=== PATIENT | male | born 1985 | race Caucasian/White ===

== ENCOUNTER 2016-08-29 12:02 | Emergency (ER) | payer BC, OTHER ==
[2016-08-29] MEDS ORDERED: TEST200V3 IM (12:32)
[2016-08-29] MEDS ORDERED: OMEP20CA9 PO (12:32)
[2016-08-29] MEDS ORDERED: CELE100C PO (12:32)
[2016-08-29] MEDS ORDERED: PHEN37.53 PO (12:33)
[2016-08-29] MEDS ORDERED: IV NORMAL SALINE 1,000ML 1,000 ML IV ONE (13:15)
[2016-08-29 13:25] LABS: BASO # 0.1 x10^3/uL (0.0-0.2); BASO % 1 % (0-3); EOS # 0.3 x10^3/uL (0.0-0.7); EOS % 2 % (0-3); HEMATOCRIT 43.4 % (39.0-53.0); LYMPH # 2.5 x10^3/uL (1.0-4.8); LYMPH % 24 % (24-48); MEAN CORPUSCULAR HEMOGLOBIN 32 pg (25-35); MEAN CORPUSCULAR HGB CONC 35 g/dL (31-37); MEAN CORPUSCULAR VOLUME 91 fL (79-100); MONO # 0.9 x10^3/uL (0.0-1.1); MONO % 8 % (0-9); NEUT % 65 % (31-73); PLATELET COUNT 222 x10^3/uL (140-400); RED BLOOD COUNT 4.75 x10^6/uL (4.30-5.70); RED CELL DISTRIBUTION WIDTH 13.3 % (11.5-14.5); WHITE BLOOD COUNT 10.8 x10^3/uL (4.0-11.0)
[2016-08-29 13:44] LABS: CALCIUM 8.5 mg/dL (8.5-10.1); CREATININE 0.9 mg/dL (0.7-1.3); GFR 97.8; POTASSIUM 3.6 mmol/L (3.5-5.1)
--- NOTE | 2016-08-29 14:38 | EKG ---
[address] [address] Test Date: 2016-08-29 Test Time: 13:05:33 Pat Name: JOYCELYN SHANKAR Department: Room: Gender: M Ditcher: : 1985 Requested By: TRINITY CARRERA Order Number: [id number] Reading MD: Measurements Intervals [place] Rate: 76 P: 29 CA: 144 QRS: -38 QRSD: 96 T: 32 QT: 386 QTc: 439 Interpretive Statements SINUS RHYTHM LEFT ATRIAL ABNORMALITY ABNORMAL LEFT AXIS DEVIATION INCOMPLETE RIGHT BUNDLE BRANCH BLOCK QRS(T) CONTOUR ABNORMALITY CONSIDER ANTEROLATERAL MYOCARDIAL DAMAGE RI6.01 Unconfirmed report No previous ECG available for comparison
--- NOTE | 2016-08-29 14:40 | RAD ---
Nathan Wales Chest x-ray 1303 INDICATION: Weakness COMPARISON: 01/26/2013 FINDINGS: Single view of chest obtained. No focal airspace consolidation. Mediastinal contour is unremarkable. No gross osseous destructive lesion. IMPRESSION: No focal airspace consolidation or edema. MTDD
--- NOTE | 2016-08-29 14:41 | RAD ---
Nathan Subhash 1350 CT head INDICATION: Headache and weakness COMPARISON: None. TECHNIQUE: Axial CT images obtained through the head without intravenous contrast. FINDINGS: Tiny/subtle focus of high attenuation at the frontal interhemispheric region No midline shift. Basal cisterns patents. Ventricles and sulci are unremarkable. No acute osseous abnormality. Orbits and paranasal sinuses partially seen and unremarkable. IMPRESSION: 1. Tiny region of high attenuation at the interhemispheric region frontally and at right frontal region. This could be artifactual in nature since this is a very subtle finding but may be helpful to obtain a follow-up CT in several hours or MRI to further evaluate and ensure that this is not from a tiny subarachnoid hemorrhage. Report called to the ER at 1:46 PM on date of exam. PQRS Compliance Statement: One or more of the following individualized dose reduction techniques were utilized for this examination: 1. Automated exposure control 2. Adjustment of the mA and/or kV according to patient size 3. Use of iterative reconstruction technique MTDD
[2016-08-29 16:24] VITALS: BP 138/70
--- NOTE | 2016-08-29 17:35 | ED.ADGEN ---
Past History Past Medical History: No Pertinent History Past Surgical History: Cholecystectomy Smoking: Non-smoker Alcohol Use: None Drug Use: None Adult General HPI HPI Patient is a 31-year-old man, with no significant past no history, who presents emergency department from his primary care provider's office with a complaint of frontal headache, lightheadedness, dizziness, and possible illness secondary to heat exposure. 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 He states he also felt nauseous, with abdominal cramping. He denies any focal weakness, numbness or tingling, any syncope, any vision changes. Denies any injuries, states he is experiencing a headache across the front and top of his head which he describes as throbbing in nature, no neck pain. He denies similar symptoms previously. He states that he was outside in the heat yesterday as well, states he has been trying to stay hydrated. Denies any urinary complaints, or decrease in urination. Denies any diarrhea. Patient was seen at his primary care provider, Dr. Ace, sent to the emergency department for additional evaluation. Review of Systems Review of Systems Constitutional: Denies fever or chills [] generalized malaise, dizziness And lightheadedness. Eyes: Denies change in visual acuity, redness, or eye pain [] HENT: Denies nasal congestion or sore throat [] Respiratory: Denies cough or shortness of breath [] Cardiovascular: No additional information not addressed in HPI [] GI: Denies bloody stools or diarrhea [] abdominal cramping, nausea. No vomiting. : Denies dysuria or hematuria [] Musculoskeletal: Denies back pain or joint pain [] Integument: Denies rash or skin lesions [] Neurologic: Denies focal weakness or sensory changes, complaining of headache. Endocrine: Denies polyuria or polydipsia [] Current Medications Current Medications Current Medications Medications (Trade) Dose Ordered Sig/Marie Start Time Stop Time Status Last Admin Dose Admin Sodium Chloride 1,000 ml @ 1,000 mls/hr 1X ONCE 08/29/16 13:15 08/29/16 14:14 DC 08/29/16 13:15 1,000 MLS/HR Allergies Allergies Allergies Coded Allergies Type Severity Reaction Last Updated Verified Tetanus Vaccines & Toxoid Allergy Intermediate injection site swelling 04/12/15 Yes Physical Exam Physical Exam Constitutional: Well developed, well nourished, appears uncomfortable, eyes are closed, he is mildly diaphoretic, non-toxic appearance. [] HENT: Normocephalic, atraumatic, bilateral external ears normal, oropharynx moist, no oral exudates, nose normal. [] Eyes: PERRLA, EOMI, conjunctiva normal, no discharge. [] Neck: Normal range of motion, no tenderness, supple, no stridor. No nuchal rigidity. Cardiovascular:Heart rate regular rhythm, no murmur, S1, S2, no rubs or gallops. [] Lungs & Thorax: Bilateral breath sounds clear to auscultation , no wheezing, rhonchi, rales. No chest or crepitus or tenderness. [] Abdomen: Bowel sounds normal, soft, no tenderness, no masses, no rebound, rigidity, no guarding, no pulsatile masses. [] Skin: Warm, dry, no erythema, no rash. [] Back: No tenderness, no CVA tenderness. [] Extremities: No tenderness, no cyanosis, no clubbing, ROM intact, no edema. Negative Homans sign. [] Neurologic: Alert and oriented X 3, normal motor function, normal sensory function, no focal deficits noted. [] Psychologic: Affect normal, judgement normal, mood normal. [] Current Patient Data Vital Signs Vital Signs Date Time Temp Pulse Resp B/P (MAP) Pulse Ox O2 Delivery O2 Flow Rate FiO2 08/29/16 16:24 68 18 138/70 (92) 97 Room Air 08/29/16 12:15 97.6 Lab Results Laboratory Tests Test 08/29/16 13:12 White Blood Count 10.8 x10^3/uL (4.0-11.0) Red Blood Count 4.75 x10^6/uL (4.30-5.70) Hemoglobin 15.0 g/dL (13.0-17.5) Hematocrit 43.4 % (39.0-53.0) Mean Corpuscular Volume 91 fL (79-100) Mean Corpuscular Hemoglobin 32 pg (25-35) Mean Corpuscular Hemoglobin Concent 35 g/dL (31-37) Red Cell Distribution Width 13.3 % (11.5-14.5) Platelet Count 222 x10^3/uL (140-400) Neutrophils (%) (Auto) 65 % (31-73) Lymphocytes (%) (Auto) 24 % (24-48) Monocytes (%) (Auto) 8 % (0-9) Eosinophils (%) (Auto) 2 % (0-3) Basophils (%) (Auto) 1 % (0-3) Neutrophils # (Auto) 7.0 x10^3uL (1.8-7.7) Lymphocytes # (Auto) 2.5 x10^3/uL (1.0-4.8) Monocytes # (Auto) 0.9 x10^3/uL (0.0-1.1) Eosinophils # (Auto) 0.3 x10^3/uL (0.0-0.7) Basophils # (Auto) 0.1 x10^3/uL (0.0-0.2) Sodium Level 140 mmol/L (136-145) Potassium Level 3.6 mmol/L (3.5-5.1) Chloride Level 106 mmol/L (98-107) Carbon Dioxide Level 27 mmol/L (21-32) Anion Gap 7 (6-14) Blood Urea Nitrogen 14 mg/dL (8-26) Creatinine 0.9 mg/dL (0.7-1.3) Estimated GFR (Cockcroft-Gault) 97.8 Glucose Level 95 mg/dL (70-99) Calcium Level 8.5 mg/dL (8.5-10.1) Creatine Kinase 159 U/L (39-308) Troponin I Quantitative < 0.017 ng/mL (0-0.055) HK-Clo-I-Type Natriuretic Peptide 31 pg/mL (0-124) EKG EKG EC: Sinus rhythm, heart rate 76 bpm, left axis deviation with incomplete right bundle-branch block, contour abnormality is noted in the anterior lateral leads, QTc of 439, NE of 144, QRS of 96, abnormal ECG, does not meet STEMI criteria. As interpreted by me. [] Radiology/Procedures Radiology/Procedures [][address] [address] IMAGING REPORT Signed PATIENT: JOYECLYN CULLEN ACCOUNT: [id number] : 1985 LOCATION: ER AGE: 31 SEX: M EXAM STATUS: REG ER ORD. PHYSICIAN: TIRNITY CARRERA DO REASON: BERG/weakness PROCEDURE: CT HEAD WO CONTRAST Joycelyn Cullen 1350 CT head INDICATION: Headache and weakness COMPARISON: None. TECHNIQUE: Axial CT images obtained through the head without intravenous contrast. FINDINGS: Tiny/subtle focus of high attenuation at the frontal interhemispheric region No midline shift. Basal cisterns patents. Ventricles and sulci are unremarkable. No acute osseous abnormality. Orbits and paranasal sinuses partially seen and unremarkable. IMPRESSION: 1. Tiny region of high attenuation at the interhemispheric region frontally and at right frontal region. This could be artifactual in nature since this is a very subtle finding but may be helpful to obtain a follow-up CT in several hours or MRI to further evaluate and ensure that this is not from a tiny subarachnoid hemorrhage. Report called to the ER at 1:46 PM on date of exam. PQRS Compliance Statement: One or more of the following individualized dose reduction techniques were utilized for this examination: 1. Automated exposure control 2. Adjustment of the mA and/or kV according to patient size 3. Use of iterative reconstruction technique DICTATED AND SIGNED BY: ESPERANZA PERSAUD MD DATE: 08/29/16 1351 CC: TRINITY CARRERA DO; BATOOL ROUSSEAU MD ~ Impressions: [place] [address] IMAGING REPORT Signed PATIENT: JOYCELYN CULLEN ACCOUNT: [id number] : 1985 LOCATION: ER AGE: 31 SEX: M EXAM STATUS: REG ER ORD. PHYSICIAN: TRINITY CARRERA DO REASON: Weakness PROCEDURE: PORTABLE CHEST 1V Joycelyn Subhash Chest x-ray 1303 INDICATION: Weakness COMPARISON: 01/26/2013 FINDINGS: Single view of chest obtained. No focal airspace consolidation. Mediastinal contour is unremarkable. No gross osseous destructive lesion. IMPRESSION: No focal airspace consolidation or edema. DICTATED AND SIGNED BY: ESPERANZA PERSAUD MD DATE: 08/29/16 1336 CC: TRINITY CARRERA DO; BATOOL ROUSSEAU MD ~ Course & Med Decision Making Course & Med Decision Making Pertinent Labs and Imaging studies reviewed. (See chart for details) Patient is afebrile emergency department, blood pressures are 130s over 70s, heart rates are in the 80s, oxygen saturation is in the mid upper 90s with respiratory rate 18-20. Pupils are 3 and reactive bilaterally, patient is neurologically intact. IV fluids, laboratory studies obtained, due to new onset headache, and severity of symptoms, after discussion with Dr. Ace, CT of the head without contrast obtained. I spoke with the radiologist, Dr. Persaud, who stated that there is a concern for a possible small subarachnoid hemorrhage in the right frontal interhemispheric region area as stated, patient is neurologically intact, with stable vital signs in the emergency department. I did speak with Dr. Norris, neurosurgeon reproduction technician at [facility], he reviewed the images, requested the patient be transferred to the [facility] for additional evaluation and management. I discussed transfer additional evaluation with patient and at bedside, patient is agreeable with this plan, will be transported via ambulance, consent paperwork obtained. I did speak with Dr. Randolph of neurosurgery at the [facility], findings above were reviewed, patient was accepted to his service as a full admission to the neuro ICU, for continued monitoring and management. Patient remained stable in the emergency department, transferred to without issue. Final Impression Final Impression [] Problems: Dragon Disclaimer Dragon Disclaimer This electronic medical record was generated, in whole or in part, using a voice recognition dictation system. Departure: Impression: Primary Impression: Subarachnoid hemorrhage Additional Impression: Headache Disposition: T-TRM HOSP Condition: STABLE TRINITY CARRERA DO Aug 29, 2016 17:35
== END 2016-08-29 15:40 | disposition short-term general hospital (02) ==
LOC: ER 12:02
DX: I60.9 Nontraumatic subarachnoid hemorrhage, unspecified (principal); R51 Headache; Z88.7 Allergy status to serum and vaccine
CPT/HCPCS: 36415; 70450; 71010; 80048; 82550; 83880; 84484; 85027; 93005; 96360; 99285-25; J7030

== ENCOUNTER 2016-10-13 13:10 | Emergency (ER) | payer OTHER, BC ==
[~2016-10-13 13:10] MED LIST: CELE100C PO; OMEP20CA9 PO; PHEN37.53 PO; TEST200V3 IM
[2016-10-13 13:25] VITALS: BP 138/80
--- NOTE | 2016-10-13 13:29 | PHYS DOC ---
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 He doesn't think that the gum was recently use. He does not recall seeing any blood on the apparatus. They Braked he was able to express blood from the tip of his finger and immediately rinsed it and washed it and disinfected it. Patient has no other complaints. The patient he has no medical problems. Review of Systems Review of Systems Constitutional: Denies fever or chills [] Eyes: Denies injury HENT: Denies injury Respiratory: Denies cough or shortness of breath [] Cardiovascular: No injury GI: Denies injury Musculoskeletal: Denies back pain or joint pain [] Integument: As per the history of present illness Neurologic: Denies deficits Allergies Allergies Allergies Coded Allergies Type Severity Reaction Last Updated Verified Tetanus Vaccines & Toxoid Allergy Intermediate injection site swelling 04/12/15 Yes Physical Exam Physical Exam Constitutional: Well developed, well nourished, no acute distress, non-toxic appearance. [] HENT: Normocephalic, atraumatic, Eyes: EOMI, conjunctiva normal, no discharge. [] Neck: Normal range of motion, trachea midline no stridor. [] Cardiovascular: Normal pulse, normal perfusion Lungs & Thorax: No tachypnea Abdomen: No distention Skin: Puncture wound at the tip of the third finger left hand no active bleeding no signs of infection Back: Range of motion Extremities: No tenderness, no cyanosis, neurovascularly intact, ROM intact, no edema. [] Neurologic: Alert and oriented X 3, normal motor function, no focal deficits noted. [] Psychologic: Affect normal, judgement normal, mood normal. [] EKG EKG [] Radiology/Procedures Radiology/Procedures [] Course & Med Decision Making Course & Med Decision Making Pertinent Labs and Imaging studies reviewed. (See chart for details) Protocol we will draw labs for hepatitis panel and HIV. This will be follow-up by occupational health/Worker's Comp. at the correctional facility. [] Dragon Disclaimer Dragon Disclaimer This chart was dictated in whole or in part using Voice Recognition software in a busy, high-work load, and often noisy Emergency Department environment. It may contain unintended and wholly unrecognized errors or omissions. Departure Departure: Impression: Primary Impression: Needle exposure Disposition: 01 HOME, SELF-CARE Condition: STABLE Referrals: BATOOL ROUSSEAU MD (PCP) Patient Instructions: Needle Stick Injury Additional Instructions: Please follow up with occupational health for recheck and re-evaluation and discussion of lab results. You will be asked to be re-tested in 6 months for HIV and hepatitis panel. If you notice signs of infection in your finger please see your doctor immediately or return to the ED Christos CONNOR MD Oct 13, 2016 13:29
[2016-10-16 00:07] LABS: HCV ANTIBODY 0.1 s/co ratio (0.0-0.9); HEP A IGM ABDY Negative (Negative)
== END 2016-10-13 14:10 | disposition home or self-care (01) ==
LOC: ER 13:10
DX: S61.233A Puncture wound without foreign body of left middle finger without damage to nail, initial encounter (principal); Z88.7 Allergy status to serum and vaccine; W46.1XXA Contact with contaminated hypodermic needle, initial encounter; Y93.89 Activity, other specified; Y99.8 Other external cause status; Y92.89 Other specified places as the place of occurrence of the external cause
CPT/HCPCS: 36415; 80074; 86701; 86702; 86703; 87535; 99284

== ENCOUNTER 2016-11-24 17:27 | Emergency (ER) | payer OTHER, BC ==
[~2016-11-24] VITALS: Ht 182.9 cm; Wt 117.9 kg
[2016-11-24 18:20] VITALS: BP 136/90
--- NOTE | 2016-11-25 02:34 | ED.ADGEN ---
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 Patient had feces and urine splashed into his face approximately 2-1/2 hours prior to ED arrival. Patient immediately washed his face, applied Betadine and went home and showered. Patient denies any blood exposure or symptoms at this time. Patient sent to ED as part of workplace body fluid exposure protocol.[] Review of Systems Review of Systems ROS as per HPI. Allergies Allergies Allergies Coded Allergies Type Severity Reaction Last Updated Verified Tetanus Vaccines & Toxoid Allergy Intermediate injection site swelling 04/12/15 Yes Physical Exam Physical Exam Constitutional: Well developed, well nourished, no acute distress, non-toxic appearance. [] HENT: Normocephalic, atraumatic, bilateral external ears normal, oropharynx moist, no oral exudates, nose normal. [] Eyes: PERRLA, EOMI, conjunctiva normal. [] Neck: Normal range of motion, no tenderness, supple, no stridor. [] Cardiovascular:Heart rate regular rhythm, no murmur [] Lungs & Thorax: Bilateral breath sounds clear to auscultation [] Abdomen: Bowel sounds normal, soft, no tenderness. [] Skin: Warm, dry, no erythema, no rash. [] Back: No tenderness. [] Extremities: No tenderness. [] Neurologic: Alert and oriented X 3, normal motor function, normal sensory function, no focal deficits noted. [] Psychologic: Affect normal, judgement normal, mood normal. [] Current Patient Data Vital Signs Vital Signs Date Time Temp Pulse Resp B/P (MAP) Pulse Ox O2 Delivery O2 Flow Rate FiO2 11/24/16 18:20 119 18 136/90 (105) 98 Room Air 11/24/16 17:27 98.0 EKG EKG [] Radiology/Procedures Radiology/Procedures [] Course & Med Decision Making Course & Med Decision Making Pertinent Labs and Imaging studies reviewed. (See chart for details) [Baseline hepatitis and HIV labs ordered. Patient to follow up with work comp physician for results] Final Impression Final Impression [1. Body fluid exposure] Problems: Dragon Disclaimer Dragon Disclaimer This electronic medical record was generated, in whole or in part, using a voice recognition dictation system. SVETLANA NIETO DO Nov 25, 2016 02:34
[2016-11-25 16:12] LABS: HCV ANTIBODY <0.1 s/co ratio (0.0-0.9); HEP A IGM ABDY Negative (Negative)
== END 2016-11-24 18:20 | disposition home or self-care (01) ==
LOC: ER 17:27
DX: Z77.21 Contact with and (suspected) exposure to potentially hazardous body fluids (principal); K21.9 Gastro-esophageal reflux disease without esophagitis; M19.90 Unspecified osteoarthritis, unspecified site; Z88.7 Allergy status to serum and vaccine
CPT/HCPCS: 36415; 80074; 86701; 86702; 86703; 87535; 99284

== ENCOUNTER → 2017-09-24 | Outpatient (CLI) | payer BC | END | disposition home or self-care (01) | LOC: SURG 10:49 | PROVIDERS: ATTEND Anesthesiology Pain Medicine | DX: M25.572 Pain in left ankle and joints of left foot (principal); Z88.7 Allergy status to serum and vaccine | CPT/HCPCS: 99204 ==

== ENCOUNTER → 2017-10-02 | Outpatient (CLI) | payer BC ==
[~2017-10-02] MED LIST changes: +0.9 % SODIUM CHLORIDE 10 ML VIAL ONE; +BUPIVACAINE MPF 0.25% 10 ML VIAL. ONE; +IOHEXOL 300 MG/ML 50 ML VIAL. ONE; +LIDOCAINE 1% PF 30 ML VIAL. ONE
== END | disposition home or self-care (01) ==
LOC: SURG 10:47
PROVIDERS: ATTEND Anesthesiology Pain Medicine
DX: M54.16 Radiculopathy, lumbar region (principal); Z79.899 Other long term (current) drug therapy; Z90.49 Acquired absence of other specified parts of digestive tract; G90.522 Complex regional pain syndrome I of left lower limb; Z88.7 Allergy status to serum and vaccine
CPT/HCPCS: 62323; J2001; J3490; Q9967